=== PATIENT | female | born 1930 | race Caucasian/White ===

== ENCOUNTER 2018-02-23 16:35 | Emergency (ER) | payer OTHER ==
[~2018-02-23] VITALS: Ht 149.9 cm; Wt 50.8 kg
[~2018-02-23 16:35] MED LIST: AMLO2.5T6; FURO40TA; LEVO50TA7; POTA10TA48
[2018-02-23] MEDS ORDERED: IBUPROFEN 400 MG TAB PO ONE (23:30)
[2018-02-23] MEDS ORDERED: HYDROcodone-ACET 5/325MG TAB PO ONE (23:30)
[2018-02-23 23:45] VITALS: BP 144/71
== END 2018-02-24 01:26 | disposition home or self-care (01) ==
LOC: ER 16:35
DX: S70.01XA Contusion of right hip, initial encounter (principal); S70.11XA Contusion of right thigh, initial encounter; W01.0XXA Fall on same level from slipping, tripping and stumbling without subsequent striking against object, initial encounter; Y93.89 Activity, other specified; Y92.89 Other specified places as the place of occurrence of the external cause; Y99.8 Other external cause status; I10 Essential (primary) hypertension
CPT/HCPCS: 72170; 73700

== ENCOUNTER 2018-12-03 17:21 | Inpatient (IN) | payer OTHER | END 2018-12-06 17:40 | disposition home or self-care (01) | LOC: ER 17:21 → TELE 17:22 → TELE-EAST 12-04 15:09 | DX: A41.9 Sepsis, unspecified organism (principal); G93.41 Metabolic encephalopathy; J18.1 Lobar pneumonia, unspecified organism; L03.116 Cellulitis of left lower limb; E44.1 Mild protein-calorie malnutrition; E87.1 Hypo-osmolality and hyponatremia; N18.3 Chronic kidney disease, stage 3 (moderate); I12.9 Hypertensive chronic kidney disease with stage 1 through stage 4 chronic kidney disease, or unspecified chronic kidney disease; E86.0 Dehydration; K21.9 Gastro-esophageal reflux disease without esophagitis ==

== ENCOUNTER 2020-10-23 06:03 | Emergency (ER) | payer OTHER ==
[~2020-10-23] VITALS: Ht 149.9 cm; Wt 63.5 kg
[~2020-10-23 06:03] MED LIST changes: +AMLO-483; -AMLO2.5T6; +FURO1TAB31; -FURO40TA
[2020-10-23 08:52] LABS: Basophils # (auto) 0.1 10 ^3/uL (0-0.2); Basophils % (auto) 0.9 % (0.0-2.0); Eosinophils # (auto) 0.3 10 ^3/uL (0-0.8); Eosinophils % (auto) 2.3 % (0.0-7.0); Hematocrit 45.6 % (36.0-46.0); Hemoglobin 15.5 g/dL (12.2-16.2); Lymphocytes % (auto) 17.5 % (10.0-50.0); Mean Corpuscular Hemoglobin 30.6 pg (28.0-32.0); Mean Corpuscular Hgb Conc. 34.1 g/dL (32.0-36.0); Mean Corpuscular Volume 89.8 fL (80.0-100.0); Monocytes # (auto) 0.6 10 ^3/uL (0-1.3); Monocytes % (auto) 5.3 % (0.0-12.0); Neutrophils # (auto) 8.4 10 ^3/uL (1.6-8.6); Red Blood Cells 5.08 10^6/uL (4.0-5.20); Red Cell Distribution Width 13.8 % (11.8-14.3); White Blood Cell 11.3 10^3/uL (4.4-10.8)
[2020-10-23 09:24] LABS: Albumin 3.5 g/dL (3.4-5.0); Calcium 9.2 mg/dL (8.5-10.1); Potassium 3.3 mmol/L (3.5-5.1)
[2020-10-23 09:27] LABS: BUN/Creatinine Ratio 13.6; Bilirubin, Total 0.8 mg/dL (0.2-1.0); Total Protein 7.6 g/dL (6.4-8.2)
[2020-10-23] MEDS ORDERED: BACITRACIN TOP OINT 1 UD PKG TOP ONE (11:00)
[2020-10-23] MEDS ORDERED: LIDOCAINE 2%HCL (LOCAL ANESTH.) INJ 20ML MDV ID ONE (11:00)
[2020-10-23 13:00] VITALS: BP 143/68
== END 2020-10-23 13:14 | disposition home or self-care (01) ==
LOC: ER 06:03
DX: S51.012A Laceration without foreign body of left elbow, initial encounter (principal); I10 Essential (primary) hypertension; E78.5 Hyperlipidemia, unspecified; K21.9 Gastro-esophageal reflux disease without esophagitis; Z90.49 Acquired absence of other specified parts of digestive tract; Z79.899 Other long term (current) drug therapy; W01.198A Fall on same level from slipping, tripping and stumbling with subsequent striking against other object, initial encounter; Y93.89 Activity, other specified; Y92.89 Other specified places as the place of occurrence of the external cause; Y99.8 Other external cause status
CPT/HCPCS: 12034; 36415; 73080; 73090; 80053; 85025; 85049